=== PATIENT | female | born 1975 | race African-American/Black ===

== ENCOUNTER 2017-08-01 21:23 | Emergency (ER) | payer OTHER ==
[~2017-08-01] VITALS: Ht 165.1 cm; Wt 72.6 kg
[2017-08-01 22:11] LABS: CHLORIDE 104 mEq/L (99-109); HEMATOCRIT 36.6 % (36.0-46.0); HEMOGLOBIN 12.1 G/DL (11.9-15.5); MCHC 33.1 G/DL (30.0-36.0); MCV 69.7 FL (83-99); PLATELET COUNT 259 K/uL (156-360); POTASSIUM 4.1 mEq/L (3.7-5.4); RBC DIS.WIDTH-CV 13.3 % (11.8-14.6); RBC DIS.WIDTH-SD 33.2 % (39-53); RED BLOOD COUNT 5.25 M/uL (3.80-5.20); SODIUM 138 mEq/L (136-147); WHITE BLOOD COUNT 4.2 K/uL (4.1-10.2)
[2017-08-01 22:13] LABS: GLUCOSE 93 mg/dL (70-99)
[2017-08-01 22:17] LABS: CREATININE 0.8 mg/dL (0.6-1.3); GFR ESTIMATE (CALCULATED) > 59 mL/min/; UREA NITROGEN (BUN) 13 mg/dL (9-23)
[2017-08-01 22:26] LABS: TROP-I INTERPRETATION NEGATIVE; TROPONIN-I < 0.01 ng/mL (0.0-0.30)
[2017-08-01] MEDS ORDERED: VENTOLIN HFA18 GM IH (23:46)
[2017-08-01] MEDS ORDERED: TESSALON PERLE100 MG PO (23:46)
[2017-08-01] MEDS ORDERED: ZITHROMAX250 MG PO (23:46)
[2017-08-01] MEDS ORDERED: PREDNISONE20 MG PO (23:46)
[2017-08-01] MEDS ORDERED: MUCINEX D ER T1 EACH PO (23:47)
[2017-08-02 00:23] VITALS: BP 144/82
== END 2017-08-02 00:24 | disposition home or self-care (01) ==
LOC: EME 21:23
DX: J11.08 Influenza due to unidentified influenza virus with specified pneumonia (principal); J18.0 Bronchopneumonia, unspecified organism; J11.83 Influenza due to unidentified influenza virus with otitis media; H65.01 Acute serous otitis media, right ear
CPT/HCPCS: 71046; 80048; 84484; 85027; 94640; 99281; 99284; J7512